=== PATIENT | male | born 1975 | race African-American/Black ===

== ENCOUNTER 2017-06-10 18:05 | Emergency (ER) | payer SELFPAY ==
[2017-06-10] MEDS: IBUPROFEN 800 MG TABLET. PO ×2 (19:17)
== END 2017-06-10 19:41 | disposition home or self-care (01) ==
LOC: ER 18:05
DX: S93.402A Sprain of unspecified ligament of left ankle, initial encounter (principal); F12.10 Cannabis abuse, uncomplicated; W18.39XA Other fall on same level, initial encounter; Y93.89 Activity, other specified; Y92.89 Other specified places as the place of occurrence of the external cause; Y99.8 Other external cause status
CPT/HCPCS: 29515; 73610; 73630; 99284-25

== ENCOUNTER 2017-09-01 21:57 | Emergency (ER) | payer SELFPAY ==
[2017-09-02] MEDS: LIDOCAINE WITH 8.4% SOD BICARB 3 ML DISP.SYRIN. INJ (00:40)
[2017-09-02] MEDS ORDERED: SMZ/TMP 800/160MG TABLET. PO (01:16)
[2017-09-02] MEDS: SMZ/TMP 800/160MG TABLET. PO (01:19)
[2017-09-02] MEDS: IBUPROFEN 800 MG TABLET. PO (01:19)
== END 2017-09-02 01:26 | disposition home or self-care (01) ==
LOC: ER 21:57
DX: L03.011 Cellulitis of right finger (principal); F12.10 Cannabis abuse, uncomplicated
CPT/HCPCS: 10060; 87071; 87075; 87205; 99284